=== PATIENT | female | born 1975 | race Caucasian/White ===

== ENCOUNTER 2018-10-09 05:56 | Outpatient (CLI) | payer OTHER ==
[~2018-10-09] VITALS: Ht 170.2 cm; Wt 75.3 kg
[2018-10-09] MEDS ORDERED: MODA200T39 PO (11:07)
== END 2018-10-09 11:11 | disposition home or self-care (01) ==
LOC: PREOP 05:56
PROVIDERS: ATTEND Pediatrics
DX: Z01.818 Encounter for other preprocedural examination (principal)

== ENCOUNTER 2018-10-12 06:33 | Day surgery (SDC) | payer OTHER ==
[~2018-10-12] VITALS: Ht 170.2 cm; Wt 75.3 kg
[~2018-10-12 06:33] MED LIST: MODA200T39 PO
--- OUTSIDE RECORDS SUMMARY | 2018-10-12 06:40 | XMS REPORT ---
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 Name Role Phone MARTINEZGONZALES Unavailable PROBLEMS Unknown Problems ALLERGIES No Known Allergies ENCOUNTERS Encounter Location Date Diagnosis [facility] [address] [place] [address] Jan, Cellulitis of unspecified part of limb L03.119 [facility] [address] [place] [id number] 12 Dec, 2016 Tuberculin skin test encounter Z11.1 [facility] [address] [place] [phone] 05 Dec, 2016 School physical exam Z02.0 [place] [id number] [address] Nov, Physical exam Z00.00 and School physical exam Z02.[id number] [place] [phone] 13 Nov, 2016 IMMUNIZATIONS No Known Immunizations SOCIAL HISTORY Never Assessed REASON FOR VISIT RT hand has a spot the itches and ooses, first started about a week and a half ago, JBishop PLAN OF CARE Activity Details Follow Up prn Reason: VITAL SIGNS Height 64 in 2018-02-08 Weight 180.1 lbs 2018-02-08 Temperature 96.7 degrees Fahrenheit 2018-02-08 Heart Rate 98 bpm 2018-02-08 Respiratory Rate 20 2018-02-08 BMI 30.91 kg/m2 2018-02-08 Blood pressure systolic 136 mmHg 2018-02-08 Blood pressure diastolic 66 mmHg 2018-02-08 MEDICATIONS Medication Instructions Dosage Frequency Start Date End Date Duration Status Cephalexin 500 mg Orally 3 times a day 1 tablet 8h Jan, Feb, 10 day(s) Active RESULTS No Results PROCEDURES Procedure Date Ordered Result Body Site CULTURE BACTERIA ANAEROBIC Feb 08, 2018 CULTURE, BACTERIA, OTHER Feb 08, 2018 INSTRUCTIONS MEDICATIONS ADMINISTERED No Known Medications MEDICAL (GENERAL) HISTORY Type Description Date Surgical History C sections 1996 and 2005 Surgical History tonsillectomy Surgical History Plate in the Pelvis 2003 Hospitalization History surgery and toe nail removal
--- OUTSIDE RECORDS SUMMARY | 2018-10-12 06:40 | XMS REPORT ---
Author Author MARS MARTIN [facility] Address [address] [place] [address] Care Team Providers Care Package Winder Name Role Phone NBAMRAS ARANDA Unavailable PROBLEMS Unknown Problems ALLERGIES No Information ENCOUNTERS Encounter Location Date Diagnosis [facility] [address] [facility] [id number] [place], [place] [id number] Dec, Tuberculin skin test encounter Z11.1 [facility] [address] [facility] [id number] [place] [id number] Dec, School physical exam Z02.0 [place] [address] [facility] [id number] [address] Nov, Physical exam Z00.00 and School physical exam Z02.0 [place] [id number] [facility] [id number] [address] Nov, IMMUNIZATIONS No Known Immunizations SOCIAL HISTORY Never Assessed REASON FOR VISIT tb test..............lwileyrn PLAN OF CARE Activity Details Follow Up 01/17/2017 @1000 am Reason: VITAL SIGNS MEDICATIONS Unknown Medications RESULTS No Results PROCEDURES Procedure Date Ordered Result Body Site TB INTRADERMAL 2016-12-29 N/A TB INTRADERMAL TEST December 29, 2016 INSTRUCTIONS MEDICATIONS ADMINISTERED No Known Medications MEDICAL (GENERAL) HISTORY Type Description Date Surgical History C sections 1996 and 2005 Surgical History tonsillectomy Surgical History Plate in the Pelvis 2003 Hospitalization History surgery and toe nail removal
--- OUTSIDE RECORDS SUMMARY | 2018-10-12 06:40 | XMS REPORT ---
Author Author EMILIE MCKEON Organization [facility] Address [address] [place] [address] Care Team Providers Care Firestop/Containment Worker Name Role Phone EMILIE MCKEON Unavailable PROBLEMS Unknown Problems ALLERGIES No Information ENCOUNTERS Encounter Location Date Diagnosis [facility] [address] [address] [facility] [id number] [place] [id number] Dec, Tuberculin skin test encounter Z11.1 [facility] [address] [facility] [id number] [place] [id number] Dec, School physical exam Z02.0 [place] [address] [facility] [id number] [address] Nov, Physical exam Z00.00 and School physical exam Z02.0 [place] [address] [facility] [id number] [address] Nov, IMMUNIZATIONS No Known Immunizations SOCIAL HISTORY Never Assessed REASON FOR VISIT tb. Genny PLAN OF CARE Activity Details Follow Up prn Reason: VITAL SIGNS MEDICATIONS Unknown Medications RESULTS No Results PROCEDURES Procedure Date Ordered Result Body Site TB INTRADERMAL 2016-12-22 N/A TB INTRADERMAL TEST December 22, 2016 INSTRUCTIONS MEDICATIONS ADMINISTERED No Known Medications MEDICAL (GENERAL) HISTORY Type Description Date Surgical History C sections 1996 and 2005 Surgical History tonsillectomy Surgical History Plate in the Pelvis 2003 Hospitalization History surgery and toe nail removal
[2018-10-12] MEDS ORDERED: NS IV 500 ML 500 ML ONE (06:49)
[2018-10-12] MEDS ORDERED: NS IV 500 ML 500 ML IV PRN (07:08)
[2018-10-12 07:15] VITALS: BP 116/74
[2018-10-12] MEDS ORDERED: MIDAZOLAM 2 MG/2 ML (VERSED) VIAL IVP ONE (07:15)
[2018-10-12] MEDS ORDERED: fentaNYL INJECTION 100 MCG/2 ML AMP IVP ONE (07:15)
[2018-10-12] MEDS ORDERED: CATHETER FLUSH 10 ML SYR IV PRN (07:30)
[2018-10-12] MEDS ORDERED: MIDAZOLAM 2 MG/2 ML (VERSED) VIAL ONE ×5 (08:02)
[2018-10-12] MEDS ORDERED: fentaNYL INJECTION 100 MCG/2 ML AMP ONE ×2 (08:02)
--- NOTE | 2018-10-12 08:05 | Pre-Op Note & Conscious Sedat ---
Pre-Operative Progress Note H&P Reviewed The H&P was reviewed, patient examined and no changes noted. Date H&P Reviewed: Oct 12, 2018 Time H&P Reviewed: 08:04 Pre-Op Diagnosis: previous dysplastic polyp Conscious Sedation Pre-Proced ASA Score 2 For ASA 3 and 4: Consider anesthesia and medical clearance. Also, for patients with a history of failed moderate sedation consider anesthesia. Airway Lungs Heart ASA score ASA 1: a normal healthy patient ASA 2: a patient with a mild systemic disease (mid diabetes, controlled hypertension, obesity ASA 3: a patient with a severe systemic disease that limits activity (angina , COPD, prior Myocardial infarction) ASA 4: a patient with an incapacitating disease that is a constant threat to life (CHF, renal failure) ASA 5: a moribund patient not expected to survive 24 hrs. (ruptured aneurysm) ASA 6: a declared brain- patient whose organs are being harvested. For emergent operations, add the letter E after the classification Mallampati Classification Grade 2 Sedation Plan Discussed risks with patient/fam The patient is an appropriate candidate to undergo the planned procedure, sedation, and anesthesia. The patient immediately re-assessed prior to indication. CATY WAHL MD Oct 12, 2018 08:05
--- NOTE | 2018-10-12 08:30 | Endoscopy Procedure Report ---
Colonoscopy Procedure Performed: Colonoscopy Pre-Operative Diagnosis: dysplastic polyp Post-Operative Diagnosis: same Sports Team Marketing Intern: None. 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 The Keila Lewis, a 43 yr old female , was brought to to surgery area, sedated with 8 mg of Versed and 150 mg of fentanyl. She was placed in the left lateral decubitus position. Under direct visualization the scope was passed easily to the cecum. Cecum is identified by landmarks. Scope was carefully withdrawn. Findings: Ascending Colon: none Transverse Colon: none Descending/Sigmoid: small sessile polyp biopsied but unable to cautery destroy due to loaction on haustral fold Rectum: none Estimated Blood Loss: 0mL Specimens: sigmoid polyp located at 40 cm from anal verge Complications: None; patient tolerated the procedure well. Final Diagnosis: sigmoid polyp CATY WAHL MD Oct 12, 2018 08:30
--- NOTE | 2018-10-12 08:33 | Endoscopy Discharge Instruct ---
Endo Procedure/Findings Findings 1.: Polyp Discharge Instructions - Activity: You might feel a little sleepy until tomorrow. This is due to the medicine you received to relax you. Until tomorrow, you should: NOT drive a car, operate machinery or power tools. NOT drink any alcoholic beverages. NOT make any important decisions or sign importortant papers. Do not return to work until tomorrow, unless otherwise instructed. Resume previous activities tomorrow. Diet: Start by taking liquids. If you tolerate liquids, advance to solid food. Notify Physician - If you experience excessive bleeding, unusual abdominal pain, fever, or chest pain, contact your doctor immediately. Follow-Up: - I have received and understand the above instructions and will call my doctor if I have any further questions. Patient Signature Date Nurse Signature Other (Relationship) CATY WAHL MD Oct 12, 2018 08:33
[2018-10-12 08:45] VITALS: BP 117/56
[2018-10-12 09:06] VITALS: BP 111/69
[2018-10-12 09:32] VITALS: BP 111/69
== END 2018-10-12 09:30 | disposition home or self-care (01) ==
LOC: ENDO 06:33
PROVIDERS: ATTEND Pediatrics
DX: Z12.11 Encounter for screening for malignant neoplasm of colon (principal); K63.5 Polyp of colon; Z86.010 Personal history of colon polyps; F17.210 Nicotine dependence, cigarettes, uncomplicated; Z79.899 Other long term (current) drug therapy
CPT/HCPCS: 84703

== ENCOUNTER → 2019-11-13 | Outpatient (CLI) | payer OTHER ==
--- NOTE | 2019-11-13 13:08 | Diagnostic Imaging Report ---
INDICATION: Thumb pain, vitamin D deficiency. COMPARISON: None available. TECHNIQUE: Six radiographs of the bilateral hands dated 11/13/2019. FINDINGS: No acute fracture or dislocation. No destructive osseous process. The carpal alignment is well-maintained. No erosive changes. The scapholunate distances are within normal limits. No suspicious radiopaque foreign body. IMPRESSION: Unremarkable examination. Dictated by: Dictated on workstation # [id number]
== END ==
LOC: LAB FS 09:41
PROVIDERS: ATTEND Pediatrics
DX: E55.9 Vitamin D deficiency, unspecified (principal); M79.646 Pain in unspecified finger(s)
CPT/HCPCS: 36415; 82652